=== PATIENT | female | born 1975 | race Caucasian/White ===

== ENCOUNTER 2020-09-15 14:41 | Outpatient (RCR) | payer OTHER, SELFPAY ==
[2020-09-15] MEDS: COVID-19 VACC, MRNA(PFIZER)/PF 30 MCG/0.3 ML SYRINGE IM (15:12)
[2020-10-06] MEDS: COVID-19 VACC, MRNA(PFIZER)/PF 30 MCG/0.3 ML SYRINGE IM (07:30)
== END 2020-09-15 23:59 ==
LOC: IMMUN 14:41
PROVIDERS: Referring Provider Family Medicine; Visit Provider Family Medicine
DX: Z23 Encounter for immunization (principal)
CPT/HCPCS: 0001A; 0002A; 91300

== ENCOUNTER 2021-07-04 08:43 | Outpatient (CLI) | payer OTHER, SELFPAY | END 2021-07-04 23:59 | disposition short-term general hospital (02) | LOC: LABSPEC 08:43 | PROVIDERS: Visit Provider Physician Assistant | DX: Z11.52 Encounter for screening for COVID-19 (principal) | CPT/HCPCS: 87635; U0003; U0005 ==

== ENCOUNTER → 2023-05-20 | Outpatient (CLI) | payer OTHER, SELFPAY ==
--- NOTE | 2023-05-20 08:00 | ECHOD_ITS ---
Reason For Study: NON-RHEUMATIC MVP Procedure This was a 2D Doppler, Color Flow transthoracic echocardiogram. Exam performed in department. Left Ventricle Normal left ventricle. Left ventricular systolic function is normal. The estimated ejection fraction is 60 %. Normal diastology for age. No regional wall motion abnormalities noted. Right Ventricle Normal RV size. Normal systolic function. Mitral Valve Bileaflet diffuse mitral valve thickening. Mild mitral valve prolapse. Mild (1+) mitral valve insufficiency. Tricuspid Valve Normal tricuspid valve. Mild (1+) tricuspid valve insufficiency. Pulmonary artery systolic pressure is 34 mmHg. Aortic Valve Normal aortic valve. Trisinus/trileaflet aortic valve. Pulmonic Valve Normal pulmonic valve. Great Vessels Normal aortic root. The pulmonary artery is normal size. Normal inferior vena cava. Pericardium/Pleural No pericardial effusion. MMode/2D Measurements & Calculations LVIDd: 4.3 cm IVSd: 0.83 cm Ao root diam: 2.8 cm LVIDs: 3.2 cm LVPWd: 0.98 cm RVDd: 2.7 cm FS: 25.4 % LAV(MOD-bp): 40.2 ml LVAd ap4: 26.6 cm2 LVAd ap2: 28.2 cm2 LAV(MOD-bp) Indexed: 24.7 ml/m2 LVLd ap4: 7.4 cm LVLd ap2: 8.1 cm LAV(MOD-sp2): 39.5 ml EDV(MOD-sp4): 78.0 ml EDV(MOD-sp2): 84.3 ml LAV(MOD-sp4): 39.9 ml EDV(sp4-el): 81.5 ml EDV(sp2-el): 83.7 ml LVAs ap4: 15.2 cm2 LVAs ap2: 16.3 cm2 LVLs ap4: 5.9 cm LVLs ap2: 6.7 cm ESV(MOD-sp4): 32.8 ml ESV(MOD-sp2): 35.4 ml ESV(sp4-el): 33.1 ml ESV(sp2-el): 33.2 ml EF(MOD-sp4): 57.9 % EF(MOD-sp2): 58.0 % EF(sp4-el): 59.4 % SV(MOD-sp4): 45.2 ml SV(MOD-sp2): 48.9 ml SV(sp4-el): 48.4 ml LA dimension(2D): 3.2 cm LA A4 area: 14.3 cm2 RA A4 area: 13.5 cm2 TAPSE: 2.3 cm Time Measurements MV dec time: 0.17 sec Doppler Measurements & Calculations MV E max awais: 104.1 cm/sec Lat Peak E' Awais: 11.5 cm/sec Med Peak E' Awais: 9.3 cm/sec MV A max awais: 63.7 cm/sec E/E' lat: 9.0 E/E' med: 11.2 MV E/A: 1.6 MV dec slope: 622.7 cm/sec2 Ao V2 max: 99.4 cm/sec LV V1 max: 89.5 cm/sec Ao max P.0 mmHg LV V1 max P.2 mmHg Ao V2 mean: 68.5 cm/sec LV V1 mean P.6 mmHg Ao mean P.1 mmHg LV V1 mean: 59.2 cm/sec Ao V2 VTI: 22.9 cm LV V1 VTI: 18.0 cm AV (velocity ratio): 0.79 MR max awais: 536.8 cm/sec PA V2 max: 96.5 cm/sec PI dec slope: 152.1 cm/sec2 MR max P.3 mmHg PA V2 mean: 68.2 cm/sec MR mean awais: 454.9 cm/sec MR mean P.8 mmHg MR VTI: 113.1 cm TR max awais: 279.5 cm/sec TR max P.2 mmHg ECHO/Echo Complete Interpretation Summary Normal left ventricle. Left ventricular systolic function is normal. The estimated ejection fraction is 60 %. Bileaflet diffuse mitral valve thickening. Mild mitral valve prolapse. Mild (1+) mitral valve insufficiency. Ordering Physician: Michael Gray Referring Physician: MELONY PCP Performed By: Emily Urbina, TIFFANIE, RVT
== END | disposition home or self-care (01) ==
LOC: CVS 07:59
PROVIDERS: Referring Provider Internal Medicine Cardiovascular Disease; Visit Provider Internal Medicine Cardiovascular Disease
DX: I34.1 Nonrheumatic mitral (valve) prolapse (principal)
CPT/HCPCS: 93306

== ENCOUNTER → 2024-02-03 | Outpatient (CLI) | payer OTHER, SELFPAY ==
[2024-02-03 10:37] LABS: Absolute Neutrophil Count 3.6 X10^3/uL (2.0-7.7); Basophil# 0.02 X10^3/uL; Basophil% 0.4 % (0-1); Eosinophil# 0.17 X10^3/uL; Eosinophils% 3.1 % (0-5); Hematocrit 38.2 % (37-47); Hemoglobin 13.2 g/dL (12.0-15.0); Lymphocyte % 23.6 % (19-41); Mean Corp Hgb Conc 34.6 g/dL (32-36); Mean Corpuscular Hgb 33.5 pg (27.0-32.0); Mean Platelet Vol. 10.7 fl (6.2-12.0); Monocyte# 0.46 X10^3/uL; Monocyte% 8.3 % (0-10); NRBC Flagged by Analyzer 0 % (0-5); Neutrophil # 3.55 X10^3/uL (2.7-7.7); Neutrophil % 64.4 % (47-70); Platelet Count 216 K/mm3 (150-450); RBC Distribution Width CV 11.7 % (11.6-14.6); RBC Distribution Width SD 41.1 fl (35.1-43.9); Red Blood Count 3.94 M/mm3 (4.2-5.4); White Blood Count 5.5 K/mm3 (4.4-11.0)
[2024-02-03 10:40] LABS: ALB/GLOB Ratio 1.1 RATIO (0.9-2.4); AST(SGOT) 10 U/L (15-37); Alanine Aminotransfer ALT/SGPT 13 U/L (13-56); Albumin, Serum 3.5 g/dL (3.2-5.0); Alkaline Phosphatase 39 U/L (45-117); Anion Gap 5 (5-15); BUN 11 mg/dL (7-18); BUN/Creat Ratio 15.3 RATIO (10-20); Calcium,Total 8.4 mg/dL (8.5-10.1); Chloride 109 mmol/L (98-107); Creatinine, Serum 0.72 mg/dL (0.55-1.02); EST Glomerular Filtration Rate 92 mL/min (>60); Est Glom Filt Rate - Afr Amer 111 mL/min (>60); Globulin 3.2 g/dL (2.2-4.2); Glucose 100 mg/dL (74-106); Potassium 4.1 mmol/L (3.5-5.1); Protein, Total 6.7 g/dL (6.4-8.2); Sodium Level 140 mmol/L (136-145)
== END | disposition home or self-care (01) ==
LOC: MTLAB 07:11
PROVIDERS: Referring Provider Internal Medicine; Visit Provider Internal Medicine
DX: Z00.00 Encounter for general adult medical examination without abnormal findings (principal)
CPT/HCPCS: 36415; 80053; 85025

== ENCOUNTER 2024-04-07 07:09 | Day surgery (SDC) | payer OTHER, SELFPAY ==
[2024-04-07] VITALS (8 sets, daily range): BP systolic 83–100; BP diastolic 51–78; PULSE 57–83; RESP 16–18; TEMP 36.4–36.8; O2SAT 98–100; BMI 21.5
--- NOTE | 2024-04-07 07:25 | PRE.ANES_ITS ---
ASA Classification* ASA Classification ASA Classification: 2 Assessment & Plan Anesthesia* Anesthesia Assessment Anesthesia Assessment: Discussed sedation and/or anesthesia options, risks, benefits, and alternatives with patient/parents/legal guardian/POA. Questions invited. The patient/parents/legal guardian/POA seems to understand and agrees to proceed with anesthesia plan. Reviewed the physical assessment, medical history, allergy history and patient home medications list prior to surgery/procedure/anesthetic and documented any changes. Performed airway and anesthesia risk assessments. Anesthesia Type Anesthesia Type: MAC Anesthesia Focused Assessment* Airway Assessment Mouth opens: >3 cm Mallampati Score: II Focused Labs Anesthesia Preop lab: CBC WBC 5.5 K/mm3 (4.4-11.0) 02/03/24 07:14 RBC 3.94 M/mm3 (4.2-5.4) L 02/03/24 07:14 Hgb 13.2 g/dL (12.0-15.0) 02/03/24 07:14 Hct 38.2 % (37-47) 02/03/24 07:14 Plt Count 216 K/mm3 (150-450) 02/03/24 07:14 CHEMISTRY Potassium 4.1 mmol/L (3.5-5.1) 02/03/24 07:14 Sodium 140 mmol/L (136-145) 02/03/24 07:14 BUN 11 mg/dL (7-18) 02/03/24 07:14 Creatinine 0.72 mg/dL (0.55-1.02) 02/03/24 07:14 Glucose 100 mg/dL (74-106) 02/03/24 07:14 COAG Urine Test Pending 04/07/24 07:15 Pre-Assessment Diagnosis/Proposed Procedure Planned Operative Procedure(s): CSCOPE OA Anesthesia History Anesthesia History - solutions sales consultant: Anesthesia History - solutions sales consultant Hx Hospitalization No 04/02/24 08:27 Any Problems With Anesthesia No: NO HX 04/02/24 08:27 Cholinesterase deficiency No 04/02/24 08:27 You/Your Family Experience No 04/02/24 08:27 fever (hyperthermia) with Relationship Recent Exposure to Contagious Disease Does patient have nerve No 04/02/24 08:27 stimulator Patient instructed to have device shut off --Does patient have Pacemaker or ICD? When Was Last Pacemaker Check QUESTION #4 FULL TEXT: You/Your Family Experience fever (hyperthermia) with Anesthesia Last Oral Intake Last Oral intake: Last Oral Intake NPO since Meds taken in AM with sips of water? Meds patient instructed to take am of surgery PONV PONV - solutions sales consultant: PONV - solutions sales consultant Female Yes 04/02/24 08:27 HX of Motion Sickness No 04/02/24 08:27 HX of N/V After Surgery No 04/02/24 08:27 Non-Smoker Yes 04/02/24 08:27 Duration of Surgery greater No 04/02/24 08:27 than 60 minutes Number of Risk Factors 2 04/02/24 08:27 PONV Score Moderate Risk 04/02/24 08:27 Height & Weight Height & Weight: Anesthesia: Height & Weight Height 5 ft 4 in 02/03/24 09:40 Respiratory Assessment Respiratory Assessment - solutions sales consultant: Respiratory Tract Infection Hx - solutions sales consultant Hx Respiratory Tract Infection No 04/02/24 08:27 STOP Sleep Apnea STOP Sleep Apnea - solutions sales consultant: STOP Sleep Apnea - solutions sales consultant Hx Hypertension No 04/02/24 08:27 Hx Sleep Apnea No 04/02/24 08:27 CPAP BIPAP Do you snore loudly (louder No 04/02/24 08:27 than talking or can be heard Do you often feel tired/ No 04/02/24 08:27 fatigued/ sleepy during daytime? Has anyone observed you stop No 04/02/24 08:27 breathing during sleep? STOP Results Negative 04/02/24 08:27 QUESTION #5 FULL TEXT : Do you snore loudly (louder than talking or can be heard through closed doors)? Tobacco Use History Tobacco Use History - solutions sales consultant: Tobacco Use History - solutions sales consultant Tobacco Use Smoking Status Never smoker 04/02/24 08:27 Hx Tobacco Use No 04/02/24 08:27 Years Smoking Packs Smoked per Day Smoking Cessation Date was within the last 15 years Hx Smoking Cessation Date Hx Smoking Cessation Counseling Hematologic Medial History Hematologic Hx - solutions sales consultant: Hematologic Medical Hx - documentation manager Hx of Blood Transfusion No 04/02/24 08:27 Hx of Transfusion in last 3 No 04/02/24 08:27 Months Date of Last Transfusion (if within last 3 months) Ever experience any problems No 04/02/24 08:27 with transfusion(s)? Specify any problems Hx of Preganancy in last 3 No 04/02/24 08:27 Months Nurse Filling Out Transfusion DSCHRIBER 04/02/24 08:27 & Questions: Date: 04/02/24 04/02/24 08:27 Time: 08:29 04/02/24 08:27 Patient unable to answer at this time (ie. confused, unrespo /Reproduction History /Reproductive History - solutions sales consultant: /Reproductive Hx- solutions sales consultant Hx Now No 04/02/24 08:27 Gestational Age (in weeks): EDC: Hx Hx Para Hx Section SAB No 04/02/24 08:27 [facility] Medical History Wears contact lenses Alcohol use Non-smoker History of stress test History of echocardiogram Cardiology follow-up encounter Colon cancer screening Encounter to establish care Preventative health care COVID-19 Psoriasis Raynauds disease Non-rheumatic mitral regurgitation Nonrheumatic mitral (valve) prolapse Home Medications ?Medication ?Instructions ?Recorded ?Last Taken ?Type levonorgestrel 20.4 mcg/24 hr (up 1 device intrauterine ONCE 08/19/22 Unknown History to 8 yrs) 52 mg intrauterine device Allergy/AdvReac Type Severity Reaction Status Date / Time codeine AdvReac Severe Syncope Verified 04/02/24 08:27 nickel AdvReac Rash Verified 04/02/24 08:27 Family History Father History of mitral valve disorder Presence of permanent cardiac pacemaker History of mitral valve repair Depression Grandmother CVA (cerebral vascular accident) Grandfather Myocardial infarction Grandmother CHF (congestive heart failure) H/O mitral valve replacement Other complications of anesthesia, initial encounter Mother Atrial fibrillation Other complications of anesthesia, initial encounter Colon polyps Sister Depression Skin cancer Colon polyps Son Severe allergy Social History adopted: No household members: children number of children: 3 current occupational status: employed current occupation: [employer] pets and animals: Yes (2) pets and animals: cat(s) sexually active: Yes Smoking Status: Never smoker alcohol intake: current alcohol intake frequency: 0-2 drinks per day substance use type: does not use diet: gluten free and other caffeine: Yes (2) Type: coffee Number of servings: 3 what type of physical activity do you participate in: walking frequency: 5-6 times per week seatbelt use: always do you feel safe at home: Yes Review of Systems (Anesthesia) ROS Narrative System reviewed and no additional complaints, except as documented.
[2024-04-07 07:45] LABS: Internal QC Validated? YES +Cl - CLEAR BKGD; Pregnancy, Urine Negative Negative
--- NOTE | 2024-04-07 07:58 | HP.PCM_ITS ---
[facility] - General General Date of Service: 04/07/24 HPI Narrative REMY LAY, is a 48 F who presents for screening colonoscopy. Patient never had previous colonoscopy. Patient denies any family history of colon cancer. Patient's mom and sister did have polyps unsure exactly of size. Patient has bowel movements daily denies any blood. Patient denies any chronic abdominal pain/nausea/vomiting/reflux. [facility] Medical History Wears contact lenses Alcohol use Non-smoker History of stress test History of echocardiogram Cardiology follow-up encounter Colon cancer screening Encounter to establish care Preventative health care COVID-19 Psoriasis Raynauds disease Non-rheumatic mitral regurgitation Nonrheumatic mitral (valve) prolapse Home Medications ?Medication ?Instructions ?Recorded ?Last Taken ?Type levonorgestrel 20.4 mcg/24 hr (up 1 device intrauterine ONCE 08/19/22 Unknown History to 8 yrs) 52 mg intrauterine device Allergy/AdvReac Type Severity Reaction Status Date / Time codeine AdvReac Severe Syncope Verified 04/07/24 07:26 nickel AdvReac Rash Verified 04/07/24 07:26 Family History Father History of mitral valve disorder Presence of permanent cardiac pacemaker History of mitral valve repair Depression Grandmother CVA (cerebral vascular accident) Grandfather Myocardial infarction Grandmother CHF (congestive heart failure) H/O mitral valve replacement Other complications of anesthesia, initial encounter Mother Atrial fibrillation Other complications of anesthesia, initial encounter Colon polyps Sister Depression Skin cancer Colon polyps Son Severe allergy Social History adopted: No household members: children number of children: 3 current occupational status: employed current occupation: [employer] pets and animals: Yes (2) pets and animals: cat(s) sexually active: Yes Smoking Status: Never smoker alcohol intake: current alcohol intake frequency: 0-2 drinks per day substance use type: does not use diet: gluten free and other caffeine: Yes (2) Type: coffee Number of servings: 3 what type of physical activity do you participate in: walking frequency: 5-6 times per week seatbelt use: always do you feel safe at home: Yes Past Medical/Surgical History Planned Operation Planned Operative Procedure(s): CSCOPE OA Previous Hospitalizations/Surgeries HX Hospitalizations: No Any Problems With Anesthesia: No (NO HX) You/Your Family Experience Fever (Hyperthermia) With Anes: No Cholinesterase deficiency: No Cardiovascular Hx Hypertension: No Respiratory Hx Sleep Apnea: No Hx Respiratory Tract Infection/Cold (presently): No Do You Snore Loudly (louder than talking or can be heard): No Do You Often Feel Tired/ Fatigued/ Sleepy Dring Daytime?: No Has Anyone Observed You Stop Breathing During Sleep?: No Result (for STOP score): Negative Smoking Status: Never smoker Neurological Does patient have nerve stimulator: No Reproduction : No Miscellaneous Recent Exposure to Contagious Disease: No Allergies codeine Adverse Reaction (Severe, Verified 04/07/24 07:26) Syncope nickel Adverse Reaction (Verified 04/07/24 07:26) Rash Contact Dermatitis of ears Discharge Is Pt Admitted From a Skilled Nursing, or a [place] [facility]: No After D/C, Where Do you Plan to Go: Return Home Vital Signs Vital Signs Vital Signs: 04/07/24 07:27 04/07/24 07:27 Temperature 98.3 F Temperature Source Temporal Pulse Rate 83 Respiratory Rate 16 Respiratory Pattern Normal Blood Pressure 100/78 Blood Pressure Mean 85 Blood Pressure Source Monitor Blood Pressure Position Semi-Fowlers Blood Pressure Location Left Arm Pulse Ox 100 Oxygen Delivery Method Room Air Weight Weight: 125 lb 10.616 oz Body Mass Index (BMI) 21.5 Physical Exam Const alert, oriented x3 and no apparent distress HEENT normocephalic and head/scalp atraumatic Resp normal respiratory effort Cardio regular rate GI soft to palpation and non-tender; Negative for non-distended Palpation: Negative for guarding Extremity no clubbing, cyanosis or edema Skin no rashes or lesions noted Neuro CN's II-XII intact bilaterally Psych mental status grossly normal Assessment & Plan Assessment/Plan (1) Colon cancer screening: Surgery Risks - Colonoscopy I discussed with the patient the risks of the procedure: Yes Risks Include but are not Limited To: Risks include but are not limited to: Bleeding, perforation requiring further surgery, inability to complete colonoscopy requiring barium enema.
--- NOTE | 2024-04-07 08:30 | COLBX_PTH ---
PATIENT: REMY LAY LOC: EN U#:[id number] AGE/SX: 48/F ROOM: RE04/07/[address]: Dr. Fani Rey MD : 1975 BED: DIS: 04/07/2024 SPEC #: [id number] RECD: 04/07/24 11:19 STATUS: JENIFER RERosa #: [id number] LESLY: 04/07/24 08:[address]: Fani Rey DEPT: SURGICAL PATHOLOGY RECD BY: Gallo Barrios ENTERED: 04/07/24 13:19 SP TYPE: COLON BX OTHR DR: Dr. Raheel Fox MD Tissues: COLON BIOPSY Procedures: Surgery Specimen Level IV HEADER OPERATION: Colonoscopy, biopsy PRE-OP DIAGNOSIS: Colon cancer screening TISSUE SUBMITTED: Hepatic flexure polyp biopsy MICROSCOPIC DIAGNOSIS Hepatic flexure polyp, biopsy: Fragments of tubular adenoma. DENISSE/ 04/08/2024 MICROSCOPIC DESCRIPTION Slides are reviewed. GROSS DESCRIPTION Received in fixative is one container labeled with the patient's name and designated Hepatic flexure polyp biopsy. The specimen consists of multiple irregular fragments of light celaya soft tissue that in aggregate measure 0.8 x 0.2 x 0.1 cm. The specimen is totally submitted in one cassette. 04/07/2024 TC:1 CPT:78673
--- NOTE | 2024-04-07 09:23 | OP.COLON_ITS ---
Patient Name: Cheryl Eric Procedure Date: 04/07/2024 8:48 AM Date of : 1975 Age: 48 Procedure: Colonoscopy Indications: Screening for colorectal malignant neoplasm Providers: Fani Rey MD Referring MD: Fani Rey MD Medicines: Monitored Anesthesia Care Patient Profile: This is a 48 year old female. Last Colonoscopy: none. The patient's first colonoscopy is today. Complications: No immediate complications. Procedure: Pre-Anesthesia Assessment: - Prior to the procedure, a History and Physical was performed, and patient medications and allergies were reviewed. The patient's tolerance of previous anesthesia was also reviewed. The risks and benefits of the procedure and the sedation options and risks were discussed with the patient. All questions were answered, and informed consent was obtained. Prior Anticoagulants: The patient has taken no anticoagulant or antiplatelet agents. ASA Grade Assessment: Per anesthesia. After reviewing the risks and benefits, the patient was deemed in satisfactory condition to undergo the procedure. After I obtained informed consent, the scope was passed under direct vision. Throughout the procedure, the patient's blood pressure, pulse, and oxygen saturations were monitored continuously. The Colonoscope was introduced through the anus and advanced to the cecum, identified by the appendiceal orifice, ileocecal valve and palpation. The colonoscopy was performed without difficulty. The patient tolerated the procedure well. The quality of the bowel preparation was good. Scope In: 9:00:52 AM Scope Withdrawal Time 0 hours 9 minutes 6 seconds Scope Out: 9:17:09 AM Total Procedure Duration Time 0 hours 16 minutes 17 seconds Findings: The perianal and digital rectal examinations were normal. The entire examined colon appeared normal on direct and retroflexion views. A less than 5 mm polyp was found in the hepatic flexure. The polyp was sessile. The polyp was removed with a cold biopsy forceps. Resection and retrieval were complete. Impression: - The entire examined colon is normal on direct and retroflexion views. - One less than 5 mm polyp at the hepatic flexure, removed with a cold biopsy forceps. Resected and retrieved. Recommendation: - Discharge patient to home. - Resume previous diet. - Continue present medications. - Await pathology results. - Repeat colonoscopy in 5 years for surveillance based on pathology results. Procedure Code(s): --- Professional --- 09584, PT, Colonoscopy, flexible; with biopsy, single or multiple Diagnosis Code(s): --- Professional --- Z12.11, Encounter for screening for malignant neoplasm of colon D12.3, Benign neoplasm of transverse colon (hepatic flexure or splenic flexure) CPT copyright 2021 [employer]. All rights reserved. The codes documented in this report are preliminary and upon zipper machine operator review may be revised to meet current compliance requirements. MD Fani Aden MD 04/07/2024 9:23:19 AM This report has been signed electronically. Number of Addenda: 0 Note Initiated On: 04/07/2024 8:48 AM
--- NOTE | 2024-04-07 09:24 | OP.CCLET_ITS ---
04/07/2024 Raheel Fox MD [address] [place] [address] [place] [address] Re : Colonoscopy procedure for Cheryl Eric Dear Dr. Fox This procedure was performed on Sunday, April 07, 2024. My impressions and recommendations are as follows: Impressions : - The entire examined colon is normal on direct and retroflexion views. - One less than 5 mm polyp at the hepatic flexure, removed with a cold biopsy forceps. Resected and retrieved. Recommendations : - Discharge patient to home. - Resume previous diet. - Continue present medications. - Await pathology results. - Repeat colonoscopy in 5 years for surveillance based on pathology results. My findings are described in the full procedure note, which is enclosed. If I can be of further assistance, please feel free to contact me at Doctor phone number(s): , Work: . Sincerely, MD Fani Aden MD 04/07/2024 9:23:19 AM This report has been signed electronically.
--- NOTE | 2024-04-07 09:24 | PCM.POST.ANE ---
Anesthesia: Postop Eval I Current Vital Signs Temperature: 97.5 F Pulse Rate: 70 Blood Pressure: 89/56 Respiratory Rate: 18 Pulse Ox: 98 Assessment Airway patent: Yes Spontaneous unlabored respirations: Yes nausea: No Vomiting: No Anesthesia Complication: No Fluid Hydration Crystalloid volume administer (ml): 510 Total IV fluid infused: 510 Progress Note Anesthesia document: Postop Eval 1 completed: Yes
--- NOTE | 2024-04-07 11:12 | POSTOPAN2_ITS ---
Anesthesia Postop Eval I Sum Postop Eval Completion status Anesthesia document: Postop Eval 1 completed: Yes Anesthesia Postop Eval I Summary Anesthesia Postop Eval I Summary: Anesthesia Postop Eval I: Assessment Summary Airway patent Yes 04/07/24 09:24 OUTPATIENT RECEPTIONIST.CSIR Spontaneous unlabored Yes 04/07/24 09:24 OUTPATIENT RECEPTIONIST.CSIR respirations Mental status nausea No 04/07/24 09:24 OUTPATIENT RECEPTIONIST.CSIR Vomiting No 04/07/24 09:24 OUTPATIENT RECEPTIONIST.CSIR Anesthesia Postop Eval I: Fluid Summary Crystalloid volume administer 510 04/07/24 09:24 OUTPATIENT RECEPTIONIST.CSIR (ml) Colloids volume administered ( ml) Blood Product volume administered (ml) Total IV fluid infused 510 04/07/24 09:24 OUTPATIENT RECEPTIONIST.CSIR Anesthesia Postop Eval I: Summary Notes Anesthesia Complication No 04/07/24 09:24 OUTPATIENT RECEPTIONIST.CSIR Anesthesia Complication Comment: Post-operative progress note Anesthesia: Postop Eval II Evaluation Mental status: Awake Pain Level: 0 nausea: No Vomiting: No
--- NOTE | 2024-04-07 11:12 | PCM.POSTANE2 ---
Anesthesia Postop Eval I Sum Postop Eval Completion status Anesthesia document: Postop Eval 1 completed: Yes Anesthesia Postop Eval I Summary Anesthesia Postop Eval I Summary: Anesthesia Postop Eval I: Assessment Summary Airway patent Yes 04/07/24 09:24 ASSISTANT PROFESSOR OF SOCIOLOGY.CSIR Spontaneous unlabored Yes 04/07/24 09:24 ASSISTANT PROFESSOR OF SOCIOLOGY.CSIR respirations Mental status nausea No 04/07/24 09:24 ASSISTANT PROFESSOR OF SOCIOLOGY.CSIR Vomiting No 04/07/24 09:24 ASSISTANT PROFESSOR OF SOCIOLOGY.CSIR Anesthesia Postop Eval I: Fluid Summary Crystalloid volume administer 510 04/07/24 09:24 ASSISTANT PROFESSOR OF SOCIOLOGY.CSIR (ml) Colloids volume administered ( ml) Blood Product volume administered (ml) Total IV fluid infused 510 04/07/24 09:24 ASSISTANT PROFESSOR OF SOCIOLOGY.CSIR Anesthesia Postop Eval I: Summary Notes Anesthesia Complication No 04/07/24 09:24 ASSISTANT PROFESSOR OF SOCIOLOGY.CSIR Anesthesia Complication Comment: Post-operative progress note Anesthesia: Postop Eval II Evaluation Mental status: Awake Pain Level: 0 nausea: No Vomiting: No
== END 2024-04-07 10:16 | disposition home or self-care (01) ==
LOC: EN 07:10 → AC 07:11
PROVIDERS: Anesthesiology; PCP Internal Medicine; Referring Provider Internal Medicine; Visit Provider Surgery
PROC: 0DJD8ZZ Inspection of Lower Intestinal Tract, Via Natural or Artificial Opening Endoscopic (ICD-10-PCS; CPT 45378; principal; 2024-04-07 08:25)
DX: Z12.11 Encounter for screening for malignant neoplasm of colon (principal); Z83.719 Family history of colon polyps, unspecified; K63.5 Polyp of colon
CPT/HCPCS: 45380; 81025; 88305; A4216; J2405

== ENCOUNTER → 2024-11-08 | Outpatient (CLI) | payer OTHER, SELFPAY ==
[2024-11-08 19:22] LABS: Absolute Lymphocyte Count 1.41 X10^3/uL (0.83-4.51); Absolute Neutrophil Count 3.3 X10^3/uL (2.0-7.7); Basophil# 0.03 X10^3/uL; Basophil% 0.6 % (0-1); Eosinophil# 0.04 X10^3/uL; Eosinophils% 0.8 % (0-5); Hemoglobin 14.3 g/dL (12.0-15.0); Lymphocyte # 1.41 X10^3/ul (0.83-4.51); Lymphocyte % 27.8 % (19-41); Mean Platelet Vol. 10.7 fl (6.2-12.0); Monocyte# 0.28 X10^3/uL; Monocyte% 5.5 % (0-10); NRBC Flagged by Analyzer 0 % (0-5); Neutrophil # 3.29 X10^3/uL (2.7-7.7); Neutrophil % 64.9 % (47-70); Platelet Count 241 K/mm3 (150-450); RBC Distribution Width CV 11.8 % (11.6-14.6); RBC Distribution Width SD 42.4 fl (35.1-43.9); Red Blood Count 4.33 M/mm3 (4.2-5.4); White Blood Count 5.1 K/mm3 (4.4-11.0)
[2024-11-08 20:31] LABS: ALB/GLOB Ratio 1.8 RATIO (0.9-2.4); AST(SGOT) 16 U/L (<=31); Alanine Aminotransfer ALT/SGPT 11 U/L (<=34); Albumin, Serum 4.8 g/dL (3.5-5.0); Alkaline Phosphatase 54 U/L (35-104); Anion Gap 11 (5-15); BUN 10 mg/dL (4-19); BUN/Creat Ratio 14.4 RATIO (10-20); Calcium,Total 9.5 mg/dL (7.6-11.0); Carbon Dioxide 24.5 mmol/L (21.0-32.0); Chloride 102 mmol/L (98-108); Cholesterol 205 mg/dL (<=200); Creatinine, Serum 0.69 mg/dL (0.70-1.20); EST Glomerular Filtration Rate 106 (>60); Estradiol 83.4 pg/mL; Ferritin 70 ng/mL (22-378); Free T3 2.5 pg/mL (2.18-3.98); Globulin 2.6 g/dL (2.2-4.2); Glucose 92 mg/dL (70-99); High Density Lipoprotein 70 mg/dL; Low Density Lipoprotein Calc. 125 mg/dL; Potassium 4.2 mmol/L (3.3-5.1); Protein, Total 7.4 g/dL (5.9-8.4); Sodium Level 137 mmol/L (133-145); Total Bilirubin 0.62 mg/dL (0.00-1.30); Triglycerides 48 mg/dL; Very Low Density Lipoprotein 10 mg/dL (5-40); cholesterol:hdl ratio screen 2.91
[2024-11-08 20:44] LABS: Iron 148 ug/dL (50-170)
[2024-11-10 10:08] LABS: HOMOCYSTEINE 10.7 umol/L (0.0-14.5)
[2024-11-10 14:09] LABS: Lipoprotein A <8.4 nmol/L (<75.0)
[2024-11-10 15:08] LABS: PROGESTERONE 0.2 ng/mL (.)
== END | disposition home or self-care (01) ==
PROVIDERS: PCP Internal Medicine; Referring Provider Nurse Practitioner Family; Visit Provider Nurse Practitioner Family
DX: R60.0 Localized edema (principal); R32 Unspecified urinary incontinence; N95.8 Other specified menopausal and perimenopausal disorders; R51.9 Headache, unspecified; L20.89 Other atopic dermatitis; I73.00 Raynaud's syndrome without gangrene; I99.8 Other disorder of circulatory system; R68.89 Other general symptoms and signs
CPT/HCPCS: 80053; 80061; 82627; 82670; 82728; 83090; 83540; 83695; 84144; 84403; 84439; 84443; 84481; 85025; 82626

== ENCOUNTER → 2025-03-28 | Outpatient (CLI) | payer OTHER, SELFPAY ==
--- OUTSIDE RECORDS SUMMARY | 2025-03-16 15:26 | XMS RPT_ITS ---
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 Name Role Phone MARYANN ADAIR Referring Unavailable MARYANN ADAIR Primary Care Unavailable MARYANN ADAIR Primary Care Unavailable PROBLEMS DATE TYPE CONDITION / CODE ATTENDING STATUS ODALYS RCE 03/16/2025 Active Mass of right br east, unspecified quadrant / N63.10(ICD-10) NA Active [facility] PROCEDURES No Procedure Records Found RESULTS EFREN DIAG W FIDE MAX Observed: 03/16/2025 3:56 PM Status: F Source: [facility] * * *Final Report* * * DATE OF EXAM: Mar 16 2025 3:56PM [facility] EFREN [facility] W FIDE AMX / PROCEDURE REASON: Mass of right breast, unspecified quadrant * * * * Physician Interpretation * * * * RESULT: [facility] [address] [address] #[id number] - EFREN DIAG W FIDE MAX HISTORY: 49 year-old patient presents for short term follow-up of bilateral findings described on prior mammogram. Patient states no personal history of breast cancer. COMPARISON STUDIES: The present examination has been compared to prior imaging studies dated 07/07/2020 (mammogram), 07/19/2020 (mammogram), 10/26/2021 (mammogram), 01/02/2022 (ultrasound), 01/02/2022 (mammogram), 12/16/2022 (mammogram), 02/05/2023 (ultrasound), 02/05/2023 (mammogram), 09/17/2023 (mammogram) and 03/16/2024 (mammogram). MAMMOGRAM TECHNIQUE: The study was acquired using full field digital technology and interpreted from soft copy. Digital Breast Tomosynthesis (DBT) images were obtained and used to assist in the interpretation of this examination. MAMMOGRAM FINDINGS: The breasts are extremely dense, which lowers the sensitivity of mammography. Finding 1: There is a stable focal asymmetry in the lower inner quadrant of the right breast, posterior depth. This has remained unchanged and is benign. Finding 2: There are clustered coarse calcifications in the left breast at 12 o'clock, middle depth. 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 Finding 3: There is an asymmetry with associated biopsy marker in the right axilla. This has not significantly changed and is compatible with benign accessory breast tissue. Patient reports this becomes increasingly tender with her menses. IMPRESSION: There is no mammographic evidence of malignancy. Return to annual screening mammogram is recommended. Annual mammogram will be due in 1 year. BI-RADS Category 2: Benign RISK: Based on the Tyrer-Cuzick (TC) risk assessment model, this patient has a 12.7% lifetime risk of developing breast cancer, meaning they are at average risk for developing breast cancer. However, this is only an estimate based on available history provided on the patient's questionnaire. We encourage all patients to talk with their providers about these results, further recommendations for managing breast health, and appropriate supplemental screening options if the patient has dense breast tissue. Interpreting Radiologist: Rosie Fox M.D. Electronically signed on: 03/16/2025 [employer] School Academic Coach: DARLING Limaririkki Date/Time: Mar 16 2025 3:32P Dictated by: ROSIE FOX MD This examination was interpreted and the report reviewed and electronically signed by: ROSIE FOX MD on Mar 16 2025 4:11PM EST [id number] PROGRESS Observed: 03/16/2025 3:30 PM Status: COMPLETED Source: [facility] ID: [id number] Author: SULAIMAN ARMSTRONG [employer] Service: ? Author Type: Technologist Type: Progress Notes Filed: 03/16/2025 16:06 Note Text: Radiology Service Progress Note PATIENT NAME: Remy Eric DATE OF SERVICE: March 16, 2025 TIME: 4:05 PM PATIENT IDENTITY VERIFICATION COMPLETED USING TWO (2) IDENTIFIERS: Name and Date of confirmed by patient verbally. FALL SCREENING: Has the patient had 2 falls in the last year or 1 fall with injury or currently using an Ambulatory Assistive Device (Walker, Cane, Wheelchair, Crutches, etc.)? No PATIENT GENDER DATA: Assigned female at . status: : No status: NO. PATIENT RELEVANT IMPLANT DATA REVIEWED: Not Applicable PATIENT PRESENTS WITH AN IMPLANTABLE OR ATTACHED PLANER OPERATOR / GRADER: No RADIOLOGY DEPARTMENT: Mammography PERIPHERAL IV DATA: Not applicable SIGNED BY: Sulaiman Armstrong Privy March 16, 2025 4:05 PM PROGRESS Observed: 07/04/2024 7:46 AM Status: COMPLETED Source: [facility] HNO ID: [id number] Author: EDDIE OG APRN.FURNACE CHECKER Service: ? Author Type: Nurse Practitioner Type: Progress Notes Filed: 07/04/2024 07:53 Note Text: Telemedicine Evaluation for an Illness MyChart Zoom Video Visit was used for evaluation of this patient. I have communicated my name and active licensure. The patient's identity and physical location were verified at the time of this visit. Either the patient or their legal bank representative has been informed of the risks and benefits of -- and alternatives to -- treatment through a remote evaluation and consents to proceed with the evaluation remotely. SUBJECTIVE Remy Eric is a 49 year old female who presents with 5 days of symptoms that are stable. Symptoms include: Fever (>=100.4F): No or Chills: No Cough: Yes Shortness of breath: No or Difficulty breathing: No Fatigue: Yes Muscle aches: No Headache: No New loss of smell or taste: No Sore throat: Yes Nasal congestion: Yes or Rhinorrhea: Yes Nausea: No or Vomiting: No Diarrhea: No OTC meds/remedies that patient has tried: pseudoephedrine and saline. High risk category assessment No high risk factors Exposures: Sick contacts? Yes Family or close contacts with confirmed/probable COVID-19 in last 14 days? No She reports that she has never smoked. She has never used smokeless tobacco. OBJECTIVE VIDEO EXAM (if available) GENERAL: well appearing, alert, in no acute distress HEENT: no conjunctival injection, pupils equal and moist mucous membranes PULMONARY: breathing comfortably on room air , no coughing noted, and no wheezing noted ASSESSMENT/PLAN (J06.9) Viral upper respiratory tract infection with cough (primary encounter diagnosis) Most consistent at this time with uncomplicated viral URI/respiratory infection. Recommended continued symptomatic treatments and monitoring. Explained reasonable if symptoms uncomplicated to continue symptomatic treatments for a couple of weeks (total) before seeking re-evaluation for persistent symptoms, but patient indicates she is [place] in [place], so seeking re-evaluation at the end of this week given her specific situation would be reasonable if she chose. Eddie Og, GÓMEZ.FURNACE CHECKER - Discussed symptom monitoring and supportive care - Red flag symptoms requiring follow up discussed ALLERGIES DATE TYPE / CODE NAME / CODE REACTION SEVERITY SOURCE 06/24/2018 DRUG INGREDI/[id number]( SNOMED CT) CODEINE OTHER: SEE C [facility] 06/24/2018 DRUG INGREDI/[id number]( SNOMED CT) NICKEL OTHER: SEE [facility] ENCOUNTERS ADMIT/DISCHARGE ACCOUNT NUMBER ADMITTING ENCOUNTER CLASS LOC ATION SOURCE 03/16/2025 [id number] Ambulatory [facility] 07/04/2024/ 5 [id number] Ambulatory [facility] PAYERS ENCOUNTER GUARANTOR PAYER SUBSCRIBER SOURCE 03/16/2025 Primary Insuranc e:[facility] CHOICE PLUSPolicy Number: [id number] Date:[id number] Name:Gomez PAGANESTELITA: [id number] [place] [address] [facility] 07/04/2024 Primary Insuranc e:[facility] CHOICE PLUSPolicy Number: [id number] Date:[id number] Name:Gomez Ochoa LATASHAOB: [id number] [place] [address] [facility]
--- NOTE | 2025-03-28 12:22 | ECHOD_ITS ---
Reason For Study Reason For Study: Mitral Valve Prolapse Procedure This was a 2D Doppler, Color Flow transthoracic echocardiogram. Exam performed in department. Left Ventricle Normal LV size. The left ventricular ejection fraction is 60 %. Normal diastology for age. No regional wall motion abnormalities noted. Right Ventricle Normal RV size. Normal systolic function. Atria Normal left atrium. Normal right atrium. Mitral Valve Bileaflet diffuse mitral valve thickening. Mild mitral valve prolapse. Mild- Moderate (1-2+) eccentric mitral valve insufficiency. Tricuspid Valve Normal tricuspid valve. Unable to estimate RV systolic pressure due to insufficient tricuspid regurgitant envelope. Aortic Valve Trisinus/trileaflet aortic valve. Pulmonic Valve Normal pulmonic valve. Great Vessels Normal aortic root. The pulmonary artery is normal size. Inferior vena cava collapse with respiration. Pericardium/Pleural No pericardial effusion. MMode/2D Measurements & Calculations LVIDd: 4.9 cm IVSd: 0.83 cm Ao root diam: 3.0 cm LVIDs: 2.8 cm LVPWd: 0.65 cm RVDd: 3.0 cm FS: 41.4 % LAV(MOD-bp): 37.1 ml LVAd ap4: 24.8 cm2 SV(MOD-sp4): 42.6 ml LAV(MOD-bp) Indexed: 22.7 ml/m2 LVLd ap4: 7.4 cm SI(MOD-sp4): 26.1 ml/m2 LAV(MOD-sp2): 42.9 ml EDV(MOD-sp4): 68.5 ml LAV(MOD-sp4): 29.1 ml EDV(sp4-el): 71.2 ml LVAs ap4: 14.4 cm2 LVLs ap4: 6.4 cm ESV(MOD-sp4): 25.9 ml ESV(sp4-el): 27.2 ml EF(MOD-sp4): 62.2 % EF(sp4-el): 61.8 % SV(sp4-el): 44.0 ml LA A4 area: 12.7 cm2 LA dimension(2D): 3.2 cm RA A4 area: 12.8 cm2 TAPSE: 2.5 cm Time Measurements MV dec time: 0.23 sec Doppler Measurements & Calculations MV E max awais: 91.9 cm/sec Lat Peak E' Awais: 12.7 cm/sec Med Peak E' Awais: 11.2 cm/sec MV A max awais: 66.2 cm/sec E/E' lat: 7.2 E/E' med: 8.2 MV E/A: 1.4 MV V2 max: 109.9 cm/sec MV P1/2t max awais: 110.4 cm/sec Ao V2 max: 106.4 cm/sec MV max P.8 mmHg MV P1/2t: 74.7 msec Ao max P.5 mmHg MV V2 mean: 52.7 cm/sec Ao V2 mean: 69.1 cm/sec MV mean P.4 mmHg MV dec slope: 433.2 cm/sec2 Ao mean P.2 mmHg MV V2 VTI: 34.5 cm MVA(P1/2t): 2.9 cm2 Ao V2 VTI: 21.3 cm AV (velocity ratio): 0.85 LV V1 max: 86.0 cm/sec MR max awais: 524.6 cm/sec PA V2 max: 95.1 cm/sec LV V1 max P.0 mmHg MR max P.1 mmHg LV V1 mean P.4 mmHg LV V1 mean: 55.0 cm/sec LV V1 VTI: 18.0 cm ECHO/Echo Complete Interpretation Summary Normal LV size. The left ventricular ejection fraction is 60 %. Normal diastology for age. Bileaflet diffuse mitral valve thickening. Mild mitral valve prolapse. Compared to 2022 essentially unchanged. Ordering Physician: Russ Bills Referring Physician: Russ Bills Performed By: Silver Townsend RCS
== END | disposition home or self-care (01) ==
PROVIDERS: PCP Internal Medicine; Referring Provider Student in an Organized Health Care Education/Training Program; Visit Provider Student in an Organized Health Care Education/Training Program
DX: I34.1 Nonrheumatic mitral (valve) prolapse (principal); I34.0 Nonrheumatic mitral (valve) insufficiency
CPT/HCPCS: 93306